=== PATIENT | male | born 1985 | race Caucasian/White ===

== ENCOUNTER 2022-06-10 09:39 | Outpatient (CLI) | payer BC, SELFPAY ==
[2022-06-10 10:35] LABS: Chloride* 98 mmol/L (96-114)
[2022-06-10 10:36] LABS: Albumin* 4.5 g/dL (3.3-5.0)
[2022-06-10 10:37] LABS: Potassium* 4.4 mmol/L (3.6-5.1); Sodium* 134 mmol/L (135-149)
[2022-06-10 10:39] LABS: Alkaline Phosphatase* 85 U/L (40-150); Aspartate Amino Transferase* 19 U/L (12-35); Blood Urea Nitrogen* 12 mg/dL (5-24); Carbon Dioxide* 27 mmol/L (20-32); Cholesterol* 151 mg/dL (90-199); Creatinine* 0.8 mg/dL (0.5-1.5); Estimated Glomerular Filt Rate 115 ml/min
[2022-06-10 10:40] LABS: Alanine Aminotransferase* 19 U/L (4-50); Calcium* 9.6 mg/dL (8.4-10.6); HDL Cholesterol* 19 mg/dL (>=40); LDL Cholesterol Calculated 53 mg/dL (<100); Triglycerides* 397 mg/dL (40-149)
[2022-06-10 10:52] LABS: Glucose* 359 mg/dL (60-115)
== END 2022-06-10 09:40 | disposition home or self-care (01) ==
PROVIDERS: PCP Family Medicine; Visit Provider Family Medicine
DX: E78.5 Hyperlipidemia, unspecified (principal)
CPT/HCPCS: 80053; 80061

== ENCOUNTER 2022-06-22 08:14 | Outpatient (CLI) | payer BC, SELFPAY ==
[2022-06-22 10:14] LABS: Microalbumin Creatinine Ratio 30 mg/g (0-30); Microalbumin Urine 2 mg/dL
== END 2022-06-22 08:15 | disposition home or self-care (01) ==
PROVIDERS: PCP Family Medicine; Visit Provider Family Medicine
DX: Z00.00 Encounter for general adult medical examination without abnormal findings (principal); E11.9 Type 2 diabetes mellitus without complications; E66.9 Obesity, unspecified
CPT/HCPCS: 82043; 82570

== ENCOUNTER 2023-10-16 07:20 | Outpatient (CLI) | payer OTHER, SELFPAY ==
--- OUTSIDE RECORDS SUMMARY | 2023-10-18 10:54 | XMS_ITS | Continuity of Care Document ---
Author Name [facility] Organization [facility] Care Team Providers Care Ultrasound Technologist Name Role Phone [facility] Unavailable Unavailable Problems Combined list of problems from Department of Defense and Veterans Affairs facilities. It does not include entries that were removed or entered in error. 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, 2023 Entered By: DEL CHAPPELL Comment: tobacco- past cigarettes- 1PPd, now chewing 1 can/dayAug 02, 2023 Entered By: DEL CHAPPELL Comment: illicit drug- none [facility] History of surgery Active Condition Aug 02, 2023 Entered By: DEL CHAPPELL Comment: None [facility] Reactive airway disease Active Condition Aug 02, 2023 Entered By: DEL CHAPPELL Comment: rescue inhaler- albuterol [facility] Type 2 diabetes mellitus Active Condition Aug 04, 2023 Entered By: DEL CHAPPELL Comment: Metformin 1000mg BID [facility] assessment of patient condition work-related Active Condition [facility] visit for: services physical pre-deployment Active Condition [facility] visit for: services physical Active Condition [facility] complication of procedure seroma Active Condition [facility] visit for: postsurgical exam Active Condition [facility] hypertrophy of breast Active Condition [facility] Breast Hypertrophy Active Condition [facility] Need For Vaccination Against Influenza Inactive Condition FLUMIST PE R PROTOCOL. [facility] limb pain Inactive Condition F/U with diagnostic medical sonographer ([facility] [place]). Do[facility] limb swelling Active Condition May ta ke motrin for pain. Elevate. May use crutches. F/U with their [facility] [place] [facility]. Do[facility] warts common Active Condition Do[facility] otitic barotrauma Active Condition [facility] [employer] [facility] [employer] examination Inactive Condition [facility] Diagnosis: ICD-10-CM F17.200 Nicotine dependence, unspecified, uncomplicated Active Diagnosis [facility] Diagnosis: ICD-10-CM Z72.0 Tobacco use Active Diagnosis [facility] Diagnosis: ICD-10-CM E11.9 Type 2 diabetes mellitus without complications Active Diagnosis [facility] Medications Combined list of outpatient medications from Department of Defense and Veterans Affairs facilities.Medications provided include 1) outpatient medications from the last 15 months, and 2) patient-reported medications. Medication Details Route Status Patient Instructions Prescription Expires Prescription Number Last Dispense Date Ordering Provider Order Date Source METFORMIN HCL 1000MG TAB TAKE ONE TABLET BY MOUTH TWICE A DAY FOR DIABETES ORALLY DISCONT INUED 08/02/2024 [id number] KURTIS CHAPPELL 2022 [facility] METFORMIN HCL 500MG 24HR TAB,SA TAKE TWO TABLETS BY MOUTH TWICE A DAY FOR DIABETES ORALLY ACTIVE 08/10/2024 [id number] JOSEJUDE DAMARIS 2022 [facility] NICOTINE 21MG/24HRS PATCH APPLY 2 PATCHES TOPICALL Y EVERY DAY TO QUIT TOBACCO TOPICA LLY ACTIVE 08/10/2024 [id number] 3 JUDE GARCIA 2022 [facility] NICOTINE POLACRILEX 4MG TAB,CHEWG GUM CHEW 1 PIECE IN MOUTH EVERY HOUR NEEDED TO QUIT TOBACCO ORALLY ACTIVE 08/10/2024 [id number] JUDE GARCIA DAMARIS 2022 [facility] Allergies, Adverse Reactions, Alerts Combined list of allergies from Department of Defense and Veterans Affairs facilities. It does not include entries that were removed or entered in error. Substance Category Reaction Severity Reaction type Status Date Reported Comments Source No Known Allergies Drug allergy (disorder) active 10/31/2006 FRIDA Christy Immunizations Combined list of available immunizations from the Department of Defense and Veterans Affairs facilities. Immunization Series Date Given Administered By Site Reaction Lot Number CVX Code Drug Saturator Tender Status Comments Source INFLUENZA, INJECTABLE, QUADRIVALENT, PRESERVATIVE FREE 2022 JAIME STATON GABBIE LEFT DELTO ID [id number] A 150 complet ed [facility] INFLUENZA, RECOMBINANT, QUADRIVALENT, INJECTABLE, PRESERVATIVE FREE 2021 185 complet [facility] PNEUMOCOCCAL POLYSACCHARID E PPV23 2021 33 complet ed [facility] INFLUENZA, INJECTABLE, QUADRIVALENT, PRESERVATIVE FREE 2020 150 complet [facility] INFLUENZA, INJECTABLE, QUADRIVALENT, PRESERVATIVE FREE 2016 150 complet [facility] TDAP 2015 115 complet [facility] influenza virus vaccine, live, attenuated, for intranasal use 0 2008 111 Transcribed (TRS) complet influenza virus vaccine, live, attenuate d, for intranasa l use [facility] influenza virus vaccine, split virus (incl. purified surface antigen)-reti red CODE 0 2007 UNK 15 Unknown (UNK) comple t ed influenza virus vaccine, split virus (incl. purified surface antigen)- retired CODE [facility] influenza virus vaccine, whole virus 1 2006 Unknown, Provider [id number] Other (OTH) complet ed influenza virus vaccine, whole virus [facility] influenza virus vaccine, live, attenuated, for intranasal use 0 [address] [employer] (MED) complet ed influenza virus vaccine, live, attenuate d, for intranasa l use [facility] influenza virus vaccine, split virus (incl. purified surface antigen)-reti red CODE 0 2005 UNK 15 [employer] (MED) complet ed influenza virus vaccine, split virus (incl. purified surface antigen)- retired CODE [facility] influenza virus vaccine, whole virus 1 2005 Unknown, Provider [id number] [employer] (MED) complet ed influenza virus vaccine, whole virus [facility] TDAP 2001 115 complet [facility] measles, mumps and rubella virus vaccine 1 2001 [id number] Merck (MSD) complet ed measles, mumps and rubella virus vaccine [facility] tetanus and diphtheria toxoids, adsorbed, preservative free, for adult use (2 Lf of tetanus toxoid and 2 Lf of diphtheria toxoid) 0 2001 UNK 09 Sanofi Pasteur (PMC) complet ed tetanus and diphtheri a toxoids, adsorbed, preservat yuko free, for adult use (2 Lf of tetanus toxoid and 2 Lf of diphtheri a toxoid) [facility] poliovirus vaccine, inactivated 3 2001 [id number] Other (OTH) complet ed polioviru s vaccine, inactivat ed [facility] meningococcal polysaccharid e vaccine (MPSV4) 1 2001 [id number] Other (OTH) complet ed meningoco ccal polysacch aride vaccine (MPSV4) [facility] yellow fever vaccine 2 2001 [id number] Other (OTH) complet ed yellow fever vaccine [facility] hepatitis A vaccine, pediatric/ado lescent dosage, 2 dose schedule 2 2001 [id number] Merck (MSD) complet ed hepatitis A vaccine, pediatric /adolesce nt dosage, 2 dose schedule Do[facility] Results Combined list of recent chemistry, hematology and other laboratory results from Department of Defense and Veterans Affairs, ranging from 15 months to all on record, depending upon the facility. Order Name Results Value Reference Range Date Interpretation Specimen Comments Source OCCULT BLOOD FIT X1 SCREEN HEMOGLOBIN .GASTROINT ESTINAL.LO WER [PRESENCE] IN STOOL BY IMMUNOASSA Y Negative 08/09 Specimen Type: FECES No comment entered. Ordering Provider: MILAD CHAPPELL Report Released Date/Time: Aug 02, 2023 09:35 AM Reporting Lab: [facility] [phone] Performing Lab: [facility] [phone] [facility] TSH W/REFLEX TO FREE T4 THYROTROPI N [UNITS/VOL UME] IN SERUM OR PLASMA 1.01 0.35 - 4.94 08/02 Specimen Type: PLASMA Comment: Elevated triglycerid e result from a non-fasting specimen should be interpreted with caution. A fasting panel is recommended for accurate triglycerid es when trigs are >200 from a non-fasting specimen. Ordering Provider: MILAD CHAPPELL Report Released Date/Time: Aug 02, 2023 09:35 AM Reporting Lab: [facility] [address] Performing Lab: [facility] [address] [facility] CBC LEUKOCYTES [#/VOLUME] IN BLOOD BY AUTOMATED COUNT 6.18 4.0 - 11.0 08/02 Specimen Type: BLOOD No comment entered. Ordering Provider: MILAD CHAPPELL Report Released Date/Time: Aug 02, 2023 09:35 AM Reporting Lab: [facility] [address] Performing Lab: [facility] [address] [facility] CBC ERYTHROCYT ES [#/VOLUME] IN BLOOD BY AUTOMATED COUNT 5.70 4.6 - 6.2 08/02 Specimen Type: BLOOD No comment entered. Ordering Provider: MILAD CHAPPELL Report Released Date/Time: Aug 02, 2023 09:35 AM Reporting Lab: [facility] [address] Performing Lab: [facility] [address] [facility] CBC HEMOGLOBIN [MASS/VOLU ME] IN BLOOD 16.0 13.5 - 17.9 08/02 Specimen Type: BLOOD No comment entered. Ordering Provider: MILAD CHAPPELL Report Released Date/Time: Aug 02, 2023 09:35 AM Reporting Lab: [facility] [address] Performing Lab: [facility] [address] [facility] CBC HEMATOCRIT [VOLUME FRACTION] OF BLOOD BY AUTOMATED COUNT 45.7 41 - 54 08/02 Specimen Type: BLOOD No comment entered. Ordering Provider: MILAD CHAPPELL Report Released Date/Time: Aug 02, 2023 09:35 AM Reporting Lab: [facility] [address] Performing Lab: [facility] [address] [facility] CBC MCV [ENTITIC VOLUME] BY AUTOMATED COUNT 80.2 80 - 100 08/02 Specimen Type: BLOOD No comment entered. Ordering Provider: MILAD CHAPPELL Report Released Date/Time: Aug 02, 2023 09:35 AM Reporting Lab: [facility] [address] Performing Lab: [facility] [address] [facility] CBC MCH [ENTITIC MASS] BY AUTOMATED COUNT 28.1 27 - 33 08/02 Specimen Type: BLOOD No comment entered. Ordering Provider: MILAD CHAPPELL Report Released Date/Time: Aug 02, 2023 09:35 AM Reporting Lab: [facility] [address] Performing Lab: [facility] [address] [facility] CBC MCHC [MASS/VOLU ME] BY AUTOMATED COUNT 35.0 32.0 - 37.5 08/02 Specimen Type: BLOOD No comment entered. Ordering Provider: MILAD CHAPPELL Report Released Date/Time: Aug 02, 2023 09:35 AM Reporting Lab: [facility] [address] Performing Lab: [facility] [address] [facility] CBC PLATELETS [#/VOLUME] IN BLOOD BY AUTOMATED COUNT 170 150 - 400 08/02 Specimen Type: BLOOD No comment entered. Ordering Provider: MILAD CHAPPELL Report Released Date/Time: Aug 02, 2023 09:35 AM Reporting Lab: [facility] [address] Performing Lab: [facility] [address] [facility] CBC PLATELET MEAN VOLUME [ENTITIC VOLUME] IN BLOOD BY AUTOMATED COUNT 11.7 7.4 - 10.4 08/02 H Specimen Type: BLOOD No comment entered. Ordering Provider: MILAD CHAPPELL Report Released Date/Time: Aug 02, 2023 09:35 AM Reporting Lab: [facility] [address] Performing Lab: [facility] [address] [facility] CBC ERYTHROCYT E DISTRIBUTI ON WIDTH [RATIO] BY AUTOMATED COUNT 12.9 11.5 - 14.5 08/02 Specimen Type: BLOOD No comment entered. Ordering Provider: MILAD CHAPPELL Report Released Date/Time: Aug 02, 2023 09:35 AM Reporting Lab: [facility] [address] Performing Lab: [facility] [address] [facility] COMPREHE NSIVE METABOLI C PANEL+MG CREATININE [MASS/VOLU ME] IN SERUM OR PLASMA 1.0 0.7 - 1.2 08/02 Specimen Type: PLASMA Comment: Elevated triglycerid e result from a non-fasting specimen should be interpreted with caution. A fasting panel is recommended for accurate triglycerid es when trigs are >200 from a non-fasting specimen. Ordering Provider: MILAD CHAPPELL Report Released Date/Time: Aug 02, 2023 09:35 AM Reporting Lab: [facility] [address] Performing Lab: [facility] [address] [facility] COMPREHE NSIVE METABOLI C PANEL+MG UREA NITROGEN [MASS/VOLU ME] IN SERUM OR PLASMA 12 8 - 08/02 Specimen Type: PLASMA Comment: Elevated triglycerid e result from a non-fasting specimen should be interpreted with caution. A fasting panel is recommended for accurate triglycerid es when trigs are >200 from a non-fasting specimen. Ordering Provider: MILAD CHAPPELL Report Released Date/Time: Aug 02, 2023 09:35 AM Reporting Lab: [facility] [address] Performing Lab: [facility] [address] [facility] COMPREHE NSIVE METABOLI C PANEL+MG GLUCOSE [MASS/VOLU ME] IN SERUM OR PLASMA 179 70 - 100 08/02 H Specimen Type: PLASMA Comment: Elevated triglycerid e result from a non-fasting specimen should be interpreted with caution. A fasting panel is recommended for accurate triglycerid es when trigs are >200 from a non-fasting specimen. Ordering Provider: MILAD CHAPPELL Report Released Date/Time: Aug 02, 2023 09:35 AM Reporting Lab: [facility] [address] Performing Lab: [facility] [address] [facility] COMPREHE NSIVE METABOLI C PANEL+MG SODIUM [MOLES/VOL UME] IN SERUM OR PLASMA 139 136 - 145 08/02 Specimen Type: PLASMA Comment: Elevated triglycerid e result from a non-fasting specimen should be interpreted with caution. A fasting panel is recommended for accurate triglycerid es when trigs are >200 from a non-fasting specimen. Ordering Provider: MILAD CHAPPELL Report Released Date/Time: Aug 02, 2023 09:35 AM Reporting Lab: [facility] [address] Performing Lab: [facility] [address] [facility] COMPREHE NSIVE METABOLI C PANEL+MG POTASSIUM [MOLES/VOL UME] IN SERUM OR PLASMA 4.4 3.5 - 5.1 08/02 Specimen Type: PLASMA Comment: Elevated triglycerid e result from a non-fasting specimen should be interpreted with caution. A fasting panel is recommended for accurate triglycerid es when trigs are >200 from a non-fasting specimen. Ordering Provider: MILAD CHAPPELL Report Released Date/Time: Aug 02, 2023 09:35 AM Reporting Lab: [facility] [address] Performing Lab: [facility] [address] [facility] COMPREHE NSIVE METABOLI C PANEL+MG CHLORIDE [MOLES/VOL UME] IN SERUM OR PLASMA 102 98 - 107 08/02 Specimen Type: PLASMA Comment: Elevated triglycerid e result from a non-fasting specimen should be interpreted with caution. A fasting panel is recommended for accurate triglycerid es when trigs are >200 from a non-fasting specimen. Ordering Provider: MILAD CHAPPELL Report Released Date/Time: Aug 02, 2023 09:35 AM Reporting Lab: [facility] [address] Performing Lab: [facility] [phone] [facility] COMPREHE NSIVE METABOLI C PANEL+MG CARBON DIOXIDE, TOTAL [MOLES/VOL UME] IN SERUM OR PLASMA 24 - 08/02 Specimen Type: PLASMA Comment: Elevated triglycerid e result from a non-fasting specimen should be interpreted with caution. A fasting panel is recommended for accurate triglycerid es when trigs are >200 from a non-fasting specimen. Ordering Provider: IMLAD CHAPPELL Report Released Date/Time: Aug 02, 2023 09:35 AM Reporting Lab: [facility] [address] Performing Lab: [facility] [address] [facility] COMPREHE NSIVE METABOLI C PANEL+MG CALCIUM [MASS/VOLU ME] IN SERUM OR PLASMA 10.1 8.4 - 10.2 08/02 Specimen Type: PLASMA Comment: Elevated triglycerid e result from a non-fasting specimen should be interpreted with caution. A fasting panel is recommended for accurate triglycerid es when trigs are >200 from a non-fasting specimen. Ordering Provider: MILAD CHAPPELL Report Released Date/Time: Aug 02, 2023 09:35 AM Reporting Lab: [facility] [phone] Performing Lab: [facility] [address] [facility] COMPREHE NSIVE METABOLI C PANEL+MG PROTEIN [MASS/VOLU ME] IN SERUM OR PLASMA 7.5 6.0 - 8.3 08/02 Specimen Type: PLASMA Comment: Elevated triglycerid e result from a non-fasting specimen should be interpreted with caution. A fasting panel is recommended for accurate triglycerid es when trigs are >200 from a non-fasting specimen. Ordering Provider: MILAD CHAPPELL Report Released Date/Time: Aug 02, 2023 09:35 AM Reporting Lab: [facility] [phone] Performing Lab: [facility] [address] [facility] COMPREHE NSIVE METABOLI C PANEL+MG ALBUMIN [MASS/VOLU ME] IN SERUM OR PLASMA 4.6 3.5 - 5.2 08/02 Specimen Type: PLASMA Comment: Elevated triglycerid e result from a non-fasting specimen should be interpreted with caution. A fasting panel is recommended for accurate triglycerid es when trigs are >200 from a non-fasting specimen. Ordering Provider: MILAD CHAPPELL Report Released Date/Time: Aug 02, 2023 09:35 AM Reporting Lab: [facility] [address] Performing Lab: [facility] [address] [facility] COMPREHE NSIVE METABOLI C PANEL+MG BILIRUBIN. TOTAL [MASS/VOLU ME] IN SERUM OR PLASMA 0.6 0.2 - 1.2 08/02 Specimen Type: PLASMA Comment: Elevated triglycerid e result from a non-fasting specimen should be interpreted with caution. A fasting panel is recommended for accurate triglycerid es when trigs are >200 from a non-fasting specimen. Ordering Provider: MILAD CHAPPELL Report Released Date/Time: Aug 02, 2023 09:35 AM Reporting Lab: [facility] [address] Performing Lab: [facility] [address] [facility] COMPREHE NSIVE METABOLI C PANEL+MG MAGNESIUM [MASS/VOLU ME] IN SERUM OR PLASMA 1.8 1.6 - 2.6 08/02 Specimen Type: PLASMA Comment: Elevated triglycerid e result from a non-fasting specimen should be interpreted with caution. A fasting panel is recommended for accurate triglycerid es when trigs are >200 from a non-fasting specimen. Ordering Provider: MILAD CHAPPELL Report Released Date/Time: Aug 02, 2023 09:35 AM Reporting Lab: [facility] [address] Performing Lab: [facility] [address] [facility] COMPREHE NSIVE METABOLI C PANEL+MG ANION GAP IN SERUM OR PLASMA 13 5 - 15 08/02 Specimen Type: PLASMA Comment: Elevated triglycerid e result from a non-fasting specimen should be interpreted with caution. A fasting panel is recommended for accurate triglycerid es when trigs are >200 from a non-fasting specimen. Ordering Provider: MILAD CHAPPELL Report Released Date/Time: Aug 02, 2023 09:35 AM Reporting Lab: [facility] [address] Performing Lab: [facility] [address] [facility] COMPREHE NSIVE METABOLI C PANEL+MG ALKALINE PHOSPHATAS E [ENZYMATIC ACTIVITY/V OLUME] IN SERUM OR PLASMA 53 40 - 150 08/02 Specimen Type: PLASMA Comment: Elevated triglycerid e result from a non-fasting specimen should be interpreted with caution. A fasting panel is recommended for accurate triglycerid es when trigs are >200 from a non-fasting specimen. Ordering Provider: MILAD CHAPPELL Report Released Date/Time: Aug 02, 2023 09:35 AM Reporting Lab: [facility] [address] Performing Lab: [facility] [address] [facility] COMPREHE NSIVE METABOLI C PANEL+MG ALANINE AMINOTRANS FERASE [ENZYMATIC ACTIVITY/V OLUME] IN SERUM OR PLASMA 49 <55 - 55 08/02 Specimen Type: PLASMA Comment: Elevated triglycerid e result from a non-fasting specimen should be interpreted with caution. A fasting panel is recommended for accurate triglycerid es when trigs are >200 from a non-fasting specimen. Ordering Provider: MILAD CHAPPELL Report Released Date/Time: Aug 02, 2023 09:35 AM Reporting Lab: [facility] [address] Performing Lab: [facility] [address] [facility] COMPREHE NSIVE METABOLI C PANEL+MG ASPARTATE AMINOTRANS FERASE [ENZYMATIC ACTIVITY/V OLUME] IN SERUM OR PLASMA 30 <34 - 34 08/02 Specimen Type: PLASMA Comment: Elevated triglycerid e result from a non-fasting specimen should be interpreted with caution. A fasting panel is recommended for accurate triglycerid es when trigs are >200 from a non-fasting specimen. Ordering Provider: MILAD CHAPPELL Report Released Date/Time: Aug 02, 2023 09:35 AM Reporting Lab: [facility] [address] Performing Lab: [facility] [address] [facility] COMPREHE NSIVE METABOLI C PANEL+MG GLOMERULAR FILTRATION RATE/1.73 SQ M.PREDICTE D [VOLUME RATE/AREA] IN SERUM, PLASMA OR BLOOD BY CREATININE -BASED FORMULA (CKD-EPI 2020) >90 60 08/02 Specimen Type: PLASMA Comment: Elevated triglycerid e result from a non-fasting specimen should be interpreted with caution. A fasting panel is recommended for accurate triglycerid es when trigs are >200 from a non-fasting specimen. Ordering Provider: MILAD CHAPPELL Report Released Date/Time: Aug 02, 2023 09:35 AM Reporting Lab: [facility] [address] Performing Lab: [facility] [address] [facility] HEMOGLOB IN A1C HEMOGLOBIN A1C/HEMOGL OBIN.TOTAL IN BLOOD 6.8 4.0 - 6.0 08/02 H Specimen Type: BLOOD Comment: Values obtained from A1C measurement s can vary. For typical A1C assays, a reported value of 7.0 could actually be between 6.7 and 7.3 if measured by a reference method. A reported value of 9.0 could actually be between 8.7 and 9.3. Ref: http://www. ngsp.org/[place] Pdata.asp Ordering Provider: MILAD CHAPPELL Report Released Date/Time: Aug 02, 2023 09:35 AM Reporting Lab: [facility] [address] Performing Lab: [facility] [address] [facility] LIPID PANEL,NO N-FASTIN G CHOLESTERO L [MASS/VOLU ME] IN SERUM OR PLASMA 126 <199 - 199 08/02 Specimen Type: PLASMA Comment: Elevated triglycerid e result from a non-fasting specimen should be interpreted with caution. A fasting panel is recommended for accurate triglycerid es when trigs are >200 from a non-fasting specimen. Ordering Provider: MILAD CHAPPELL Report Released Date/Time: Aug 02, 2023 09:35 AM Reporting Lab: [facility] [address] Performing Lab: [facility] [address] [facility] LIPID PANEL,NO N-FASTIN G CHOLESTERO L IN HDL [MASS/VOLU ME] IN SERUM OR PLASMA 25 40 08/02 L Specimen Type: PLASMA Comment: Elevated triglycerid e result from a non-fasting specimen should be interpreted with caution. A fasting panel is recommended for accurate triglycerid es when trigs are >200 from a non-fasting specimen. Ordering Provider: MILAD CHAPPELL Report Released Date/Time: Aug 02, 2023 09:35 AM Reporting Lab: [facility] [address] Performing Lab: [facility] [address] [facility] LIPID PANEL,NO N-FASTIN G CHOLESTERO L IN LDL [MASS/VOLU ME] IN SERUM OR PLASMA BY CALCULATIO N 33 <99 - 99 08/02 Specimen Type: PLASMA Comment: Elevated triglycerid e result from a non-fasting specimen should be interpreted with caution. A fasting panel is recommended for accurate triglycerid es when trigs are >200 from a non-fasting specimen. Ordering Provider: MILAD CHAPPELL Report Released Date/Time: Aug 02, 2023 09:35 AM Reporting Lab: [facility] [address] Performing Lab: [facility] [address] [facility] LIPID PANEL,NO N-FASTIN G CHOLESTERO L IN VLDL [MASS/VOLU ME] IN SERUM OR PLASMA BY CALCULATIO N 68 <29 - 29 08/02 H Specimen Type: PLASMA Comment: Elevated triglycerid e result from a non-fasting specimen should be interpreted with caution. A fasting panel is recommended for accurate triglycerid es when trigs are >200 from a non-fasting specimen. Ordering Provider: MILAD CHAPPELL Report Released Date/Time: Aug 02, 2023 09:35 AM Reporting Lab: [facility] [address] Performing Lab: [facility] [address] [facility] LIPID PANEL,NO N-FASTIN G CHOLESTERO L NON HDL [MASS/VOLU ME] IN SERUM OR PLASMA 101 <129 - 129 08/02 Specimen Type: PLASMA Comment: Elevated triglycerid e result from a non-fasting specimen should be interpreted with caution. A fasting panel is recommended for accurate triglycerid es when trigs are >200 from a non-fasting specimen. Ordering Provider: MILAD CHAPPELL Report Released Date/Time: Aug 02, 2023 09:35 AM Reporting Lab: [facility] [address] Performing Lab: [facility] [address] [facility] LIPID PANEL,NO N-FASTIN G TRIGLYCERI DE [MASS/VOLU ME] IN SERUM OR PLASMA 339 <149 - 149 08/02 H Specimen Type: PLASMA Comment: Elevated triglycerid e result from a non-fasting specimen should be interpreted with caution. A fasting panel is recommended for accurate triglycerid es when trigs are >200 from a non-fasting specimen. Ordering Provider: MILAD CHAPPELL Report Released Date/Time: Aug 02, 2023 09:35 AM Reporting Lab: [facility] [id number] Performing Lab: [facility] [id number] [facility] Vital Signs Combined list of inpatient and outpatient Vital Signs from Department of Defense and Veterans Affairs, ranging from 12 months to all on record, depending upon the facility. Vital Sign Value Date Comments Source SYSTOLIC BLOOD PRESSURE 144 08/02/2023 08:26:18 [facility] DIASTOLIC BLOOD PRESSURE 99 08/02/2023 08:26:18 [facility] PULSE OXIMETRY 97% 08/02/2023 08:26:18 [facility] WEIGHT 247.2 08/02/2023 08:26:18 [facility] BMI 31kg/m2 08/02/2023 08:26:18 [facility] PAIN 0 08/02/2023 08:26:18 [facility] HEIGHT 74.409 08/02/2023 08:26:18 [facility] TEMPERATURE 97.9 08/02/2023 08:26:18 [facility] PULSE 79 08/02/2023 08:26:18 [facility] RESPIRATION 14 08/02/2023 08:26:18 [facility] Encounters Combined list of: 1) Encounters from Department of Veterans Affairs facilities going back up to thelast 18 months. 2) Encounters from the Department of [facility] facilities going back up to 280 months. Location Location Details Encounter Type Encounter Number Reason For Visit Attending Provider ADM Date DC Date Status Disposition Source [place] Hearing Conservat ion) OUTPATIENT [id number] FLT PE AUDIO FOR NFDS. RAMOS CRYSTAL. 07/27 Released w/o Limitations [place]) [facility] OUTPATIENT [id number] RIGHT EAR PAIN MATT WAYNE D 10/21 Released w/o Limitations [facility]) [place] TELE CONSULT [id number] Needs consult to derm for wart excisio n on forehea d. JOVANNY GALLEGOS 03/08 [place]) OUTPATIENT [id number] WARTS ROBERT VELASCO 04/13 Released [place] Limitations [place] [facility] OUTPATIENT [id number] trauma to foot JES FISHER 10/31 Released with Work/Duty Limitations [facility]) [place] OUTPATIENT [id number] SARA MARKS 08/14 Released [place]/o Limitations [place]) OUT[place]IENT [id number] GYNECOM ASTACIA LAYTON CRAFT 08/19 [place]) OUT[place]IENT [id number] F/U GYNECOM PETTYIA LAYTON CRAFT 01/06 [place]ased [place] Limitations [place]) OUTPATIENT [id number] post op Bilater al sub mastect LAYTON Jernigan 01/27 [place]ased [place] Limitations [place]) OUT[place] [id number] F/u Post Op per LAYTON Mcnamara 02/03 [place]ased [place] Limitations [place]) OUTPATIENT [id number] POST-OP SURGERY (Dr. Craft's pt.) LAYTON BUSH 03/16 [place]ased [place]/o Limitations [place] [place] OUTPATIENT [id number] ALLISON Berkowitz I 07/28 Released w/o Limitations [place] [place] [place] OUTPATIENT [id number] VOLODYMYR Valencia 09/08 Released w/o Limitations [place]) Rohini KEITH REENA [place] [facility] [facility] Conserv[facility] [place]) OUTPATIENT [id number] Notes Entered by: ALEJANDRA VITAL 20 Nov 2012 0934 ------- ------- ------- ------- -- ADENIKE VILLALOBOS 11/20 Released w/o Limitations [place] [facility] [facility]) [place] ) OUTPATIENT [id number] Notes Entered by: PATRICIA BRAR 20 Nov 2012 1012 ------- ------- ------- ------- -- JAMAL Real 11/20 Released w/o Limitations [place] Opt[place]) [place] R[place] Pre [place] Post Deploymen t) OUTPATIENT [id number] Notes Entered by: Reji RUFF 21 Nov 2012 0735 ------- ------- ------- ------- -- AN LOWERY 11/21 Released w/o Limitations [place] R[place] Immuniz[place] ions) OUTPATIENT [id number] Notes Entered by: MATI OHARA 21 Nov 2012 0741 ------- ------- ------- ------- -- PATIENT 'S IMMUNIZ ATION'S ARE UP TO DATE. JOSÉ RUFF 11/21 Released w/o Limitations [place]EE[place] Ort[place] Immun[place] [facility] Outpatient Encounter [id number] 06/22 [place] [facility] [place] [facility] [id number] 06/22 [place] [facility] [place] [facility] En[facility] [id number] 12/21 [place] [facility] [place] [facility] [place] En[facility] [id number] 07/24 [place] [facility] [place] [facility] [place] ADMIN [id number] COLLINSKASEY TALLEY GABBIE 08/02 [place] [facility] OFFICE O/P NEW MOD 45-59 MIN [id number] Diagnos is: ICD-10- CM E11.9 Type 2 diabete s mellitu s without complic ations< br/> ALYSHA CHAPPELL 08/02 [facility] PRO PHONE CALL 21-30 MIN [id number] Diagnos is: ICD-10- CM Z72.0 Tobacco use<br/ > JACKSON GARCIA 08/10 [facility] [place] [facility] Outpatient Encounter [id number] VALDEMARST COLON Price 08/23 [place] [facility] [place] [facility] Out[place] Encounter [id number] 08/24 [place] [facility] [place] [facility] Out[place] Encounter [id number] 08/28 [place] [facility] MTMS BY PHARM EST 15 MIN [id number] Diagnos is: ICD-10- CM Z72.0 Tobacco use<br/ > JACKSON GARCIA 09/19 [facility] MTMS BY PHARM EST 15 MIN [id number] Diagnos is: ICD-10- CM F17.200 Nicotin e depende nce, unspeci fied, uncompl icated< br/> JACKSON GARCIA 10/05 [facility] Procedures Combined list of: 1) Procedures from Department of Veterans Affairs facilities going back up to thelast 18 months, not all [place] non-surgical procedures are included; 2) All procedures from the Department of Defense facilities. Procedure Procedure Type Code Date Perfomer Comments Sour e Screening Test Of Visual Acuity, Quantitative, Bilateral Screening Test Of Visual Acuity, Quantitative, Bilateral 09803 11/21/19 13 JAMAL BRAR [facility] Immunization Admin By Intranasal / Oral Route One Vaccine Immunization Admin By Intranasal / Oral Route One Vaccine [id number] 07/31/20 09 ROSALBA VENTURA [facility] Influenza Virus Vaccine Intranasal Live Attenuated 07/31/20 09 ROSALBA VENTURA 0.2 ML FLUMIST GIVEN IN [facility] Postoperative Visit, Without Charge Postoperative Visit, Without Charge [id number] 03/16/20 09 LAYTON BUSH [facility] Fine Needle Aspiration Of Superficial Ti ue 02/04/20 09 LAYTON CRAFT [facility] Influenza Virus Vaccine Intranasal Live Attenuated 08/14/20 07 CARLYLE RIVAS [facility] Threshold Audiogram (Pure Tone) Threshold Audiogram (Pure Tone) [id number] 07/27/20 05 RAMOS CRYSTAL [facility] Audiometry Group Testing Audiometry Group Testing [id number] 07/27/20 05 RAMOS CRYSTAL Patient Training And Self-Care Skills Patient Training And Self-Care Skills [id number] 07/27/20 05 RAMOS CRYSTAL [facility] THERAPEUTIC, PROPHYLACTIC OR DIAGNOSTIC INJECTION (SPECIFY MATERIAL INJECTED); SUBCUTANEOUS OR INTRAMUSCULAR 01/24/20 05 [facility] PRESSURIZED/NONPRESS INHAL TREAT FOR AC AIRWAY OBSTRUCT,THERAP PURPOSE &/FOR DIAG PURP SUCH SPUTUM INDUCTION W AN AEROSOL GEN,NEBULIZER,METER DOSE INHALER/INTERMIT POSIT PRESS BREATHING (IPPB) DEV 08/03/20 04 [facility] INJECTION, METHYLPREDNISOLONE SODIUM SUCCINATE, UP TO 125 MG 11/18/19 04 [facility] ELECTROCARDIOGRAM, ROUTINE ECG WITH AT LEAST 12 LEADS; WITH INTERPRETATION AND REPORT 10/22/19 03 [facility] SCREENING TEST OF VISUAL ACUITY, QUANTITATIVE, BILATERAL 11/21/19 13 [facility] COLLECTION OF VENOUS BLOOD BY VENIPUNCTURE 09/06/20 09 [facility] IMMUNIZATION ADMINISTRATION BY INTRANASAL OR ORAL ROUTE; 1 VACCINE (SINGLE OR COMBINATION VACCINE/TOXOID) 07/28/20 09 [facility] POSTOPERATIVE FOLLOW-UP VISIT, NORMALLY INCLUDED IN THE SURGICAL PACKAGE, INDICATE THAT EVALUATION & MANAGEMENT SERVICE WAS PERFORMED DURING A POSTOPERATIVE PERIOD REASON RELATED ORIGINAL PROCEDURE 03/16/20 09 [facility] FINE NEEDLE ASPIRATION BIOPSY, WITHOUT IMAGING GUIDANCE; FIRST LESION 02/04/20 09 [facility] MASTECTOMY FOR GYNECOMASTIA 01/22/20 09 [facility] INFLUENZA VIRUS VACCINE, TRIVALENT, LIVE (LAIV3), FOR INTRANASAL USE 08/09/20 07 [facility] SELF-CARE/HOME MANAGMENT TRAIN (EG,ACT OF DAILY LIVING (ADL) &COMPENSAT TRAIN,MEAL PREPARATION,SAFETY PROCS,AND INSTRUCT IN USE OF ASST TECHNOLOGY DEV/ADPT EQUIP) DIR ONE-ON-ONE CONT,EA 15 MINUTES 07/27/20 05 [facility] SPECIAL REPORTS SUCH INSURANCE FORMS, MORE THAN THE INFORMATION CONVEYED IN THE USUAL MEDICAL COMMUNICATIONS OR STANDARD REPORTING FORM 07/30/20 02 [facility] Social History Combined list of available smoking, tobacco, and other social history from Department of Defense and Veterans Affairs facilities. Social History Type Response Date Comment Sour e Tobacco smoking status [email or web address] VA-TOBACCO NEVER USED 08/02/2023 [facility] This section is an empty social history section. [facility] Plan of Care List of future care activities from Department of Veterans Affairs facilities. Additional future care activities may be listed in the Assessment and Plan section. Date/Time Care Activity Care Activity Detail Facili ty 10/26/2023 AMBULATORY - NONE [facility]ORY - NONE [facility]
== END 2023-10-16 07:21 | disposition home or self-care (01) ==
LOC: NFLDREF 10-18 10:52
PROVIDERS: PCP Family Medicine; Referring Provider Family Medicine; Visit Provider Family Medicine
DX: I10 Essential (primary) hypertension (principal); Z13.29 Encounter for screening for other suspected endocrine disorder
CPT/HCPCS: 80048; 84443

== ENCOUNTER 2023-12-14 10:00 | Outpatient (CLI) | payer OTHER, SELFPAY | END 2023-12-14 10:01 | disposition home or self-care (01) | LOC: NFLDREF 10:02 | PROVIDERS: PCP Family Medicine; Visit Provider Family Medicine | DX: I10 Essential (primary) hypertension (principal) | CPT/HCPCS: 80048 ==

== ENCOUNTER 2025-07-25 12:24 | Emergency (ER) | payer SELFPAY ==
[2025-07-25 12:39] VITALS: BP 142/87; PULSE 113; RESP 16; TEMP 37.4; O2SAT 97; BMI 27.6
--- NOTE | 2025-07-25 14:49 | ED.GENADULT ---
HPI - General Adult General Date Seen: 07/25/25 Chief complaint: Lower Extremity Swelling Stated complaint: Possible blood clot L leg Time Seen by Provider: 07/25/25 14:49 History of Present Illness HPI narrative: 41-year-old gentleman presenting to the ER today with left knee pain as well as weakness, chills, malaise, getting worse this week. He apparently had a knee surgery done 05/20/2025 at [facility]. He has been noticing increasing redness and warmth of his left knee. He went to the [facility] in [facility] this morning for symptoms. He apparently had arthrocentesis of his knee and was told to come to the ER. He also has a known blood clot in his left lower leg and ankle. This was diagnosed on 05/28/2025 and he has been started on Xarelto ([facility] Upon being roomed in the ER stable to he received a phone call from his orthopedic doctors and they told him to go to the emergency department at [facility] (not the [facility]). He chose to leave the [facility]. He was not formally seen by medical provider. Related Data Home Medications ?Medication ?Instructions ?Recorded ?Confirmed metformin 500 mg tablet,extended 500 mg PO BID 09/23/23 07/25/25 release 24 hr empagliflozin 10 mg tablet 5 mg PO DAILY 07/25/25 07/25/25 (Jardiance) rivaroxaban 20 mg tablet (Xarelto) 20 mg PO DAILY 07/25/25 07/25/25 Previous Rx's ?Medication ?Instructions ?Recorded Blood Glucose Meter #1 ea 06/22/22 lancets #100 ea 06/22/22 albuterol sulfate 90 mcg/actuation 2 puff inhalation Q4-6H PRN 06/12/23 aerosol inhaler shortness of breath or wheezing #8.5 grams blood sugar diagnostic (Blood #50 ea 07/26/23 Glucose Test strips) amlodipine 5 mg tablet 5 mg PO QDAY #30 tabs 12/14/23 losartan 50 mg tablet 50 mg PO QDAY #90 tabs 10/07/24 Allergies Allergy/AdvReac Type Severity Reaction Status Date / Time No Known Allergies Allergy Unknown Verified 07/25/25 12:37 [facility] Medical History Former consumption of alcohol ?Z87.898 - Personal history of other specified conditions (ICD-10) History of smoking ?Z87.891 - Personal history of nicotine dependence (ICD-10) HPV (human papilloma virus) infection ?B97.7 - Papillomavirus as the cause of diseases classified elsewhere (ICD-10) Family History Diabetes Mother Atrial fibrillation Father Family history of type 1 diabetes mellitus Father High blood pressure Mother Father Social History (Updated 10/17/23 @ 11:32 by Che Perez ~ [facility]) What is your current living situation?: I presently have a place to live Problems where you live: no known problems In the past 12 months, utilities in danger of being shut off: no In past 12 months, lack of transportation kept you from medical appts, meetings, work, or getting things needed for daily living: no In the past 12 mos, have been you worried that your food would run out before you had money to buy more?: never true In the past 12 mos, the food you bought just didn't last and you didn't have money to buy more?: never true Smoking Status: Former smoker Do you use any of these nicotine containing products: Smokeless Tobacco How often do you have a drink containing alcohol: never AUDIT-C Alcohol total score: 0 Non-prescribed substance use: denies use How often does anyone, including family, friends and others, physically hurt you: never How often does anyone, including family, friends and others, insult or talk down to you: never How often does anyone, including family, friends and others, threaten you with harm: never How often does anyone, including family, friends and others, scream or curse at you: never Exam Const: Vital Signs, click to edit/add: Vital Signs - 24 hr 07/25/25 12:39 Temperature 99.3 F Pulse Rate [Pulse Oximeter] 113 H Respiratory Rate 16 Blood Pressure [Ri ght Upper Arm] 142/87 H Pulse Oximetry 97 Oxygen Delivery Me thod Room Air Course Vital Signs Vital signs: Initial Vital Signs Temperature 99.3 F 07/25/25 12:39 Temperature Source Temporal Artery Scan 07/25/25 12:39 Pulse Rate 113 H 11/14/25 12:39 Pulse Rhythm Regular 07/25/25 12:39 Respiratory Rate 16 07/25/25 12:39 Blood Pressure 142/87 H 07/25/25 12:39 Blood Pressure Mean 105 07/25/25 12:39 Blood Pressure Position Sitting 07/25/25 12:39 Pulse Oximetry 97 07/25/25 12:39 Oxygen Delivery Method Room Air 07/25/25 12:39 Vital Signs Temperature 99.3 F 07/25/25 12:39 Pulse Rate 113 H 07/25/25 12:39 Respiratory Rate 16 07/25/25 12:39 Blood Pressure 142/87 H 07/25/25 12:39 Pulse Oximetry 97 07/25/25 12:39 Oxygen Delivery Method Room Air 07/25/25 12:39 Temperature 99.3 F 07/25/25 12:39 Pulse Rate 113 H 07/25/25 12:39 Respiratory Rate 16 07/25/25 12:39 Blood Pressure 142/87 H 07/25/25 12:39 Pulse Oximetry 97 07/25/25 12:39 Oxygen Delivery Method Room Air 07/25/25 12:39 Discharge Plan Discharge Patient Disposition: Left Without Being Seen
== END 2025-07-25 15:05 | disposition left against medical advice (07) ==
PROVIDERS: Emergency Provider Emergency Medicine; PCP Family Medicine
DX: Z53.21 Procedure and treatment not carried out due to patient leaving prior to being seen by health care provider (principal)
CPT/HCPCS: 99281